=== PATIENT | female | born 1975 | race Caucasian/White ===

== ENCOUNTER 2020-09-28 05:06 | Observation (INO) ==
[2020-09-28] MEDS ORDERED: ONDANSETRON 4 MG/2 ML VIAL IV STA (05:31)
[2020-09-28] MEDS ORDERED: NITROGLYCERIN 2% OINT 1 INCH/GM PACK TOP STA (05:31)
[2020-09-28] MEDS ORDERED: ASPIRIN 325 MG TABLET PO STA (05:31)
[2020-09-28] MEDS ORDERED: MORPHINE 4 MG/1 ML VIAL IV STA (05:31)
[2020-09-28] MEDS ORDERED: ALUM/MAG/SIMETH/LIDO VISC 1:1 30 ML BOTTLE PO STA (05:31)
[2020-09-28 05:48] LABS: Basophils # 0.1 10*3/uL (0.0-0.2); Basophils % 0.6 % (0.0-0.8); Eosinophils # 0.5 10*3/uL (0.0-0.87); Eosinophils % 4.2 % (0.00-10.9); Hematocrit 42.1 VOL% (35.7-47.0); Hemoglobin 14.5 GM/DL (12.0-16.0); Immature Granulocytes % 0.4 %; Immature Granulocytes Absolute 0.04 #; Lymphocytes % 35.7 % (21.3-54.2); Mean Corpuscular HGB Conc 34.4 GM/DL (32-36); Mean Corpuscular Volume 91.7 FL (87-102); Mean Platelet Volume 9.1 FL (9.6-12.0); Neutrophils % 51.1 % (38.7-73.9); Platelet Count 276 T/CUMM (130-400); Red Blood Count 4.59 MC/CUMM (3.8-5.5); White Blood Count 11.1 T/CUMM (4-12)
[2020-09-28 05:58] LABS: PT Patient Result 10.5 SECS (9.8-11.9)
[2020-09-28 06:18] LABS: Eosinophils 5 % (0-10); Lymphocytes 37 % (20-55); Platelet Estimate Adequate; Segmented Neutrophils 50 % (50-85); Total Cells Counted 100
[2020-09-28 06:19] LABS: Atypical Lymphocytes Few
[2020-09-28 06:44] LABS: Albumin 3.8 G/DL (3.4-5.0); Bilirubin,Total 0.5 MG/DL (0.2-1.0); Calcium 9.1 MG/DL (8.5-10.1); Osmolality,Calculated 273.7 MOS/KG (273-304); Total Protein 7.2 G/DL (6.4-8.3)
[2020-09-28] MEDS ORDERED: cefTRIAXone 1,000 MG in SYRINGE 1 EACH IV SCH (09:30)
[2020-09-28] MEDS ORDERED: ALBUTEROL 2.5 MG/3 ML NEB RESP TX PRN ×2 (09:31→09:48)
[2020-09-28] MEDS ORDERED: busPIRone 5 MG TABLET PO ONE (09:41)
[2020-09-28] MEDS ORDERED: AZITHROMYCIN INJ 500 MG in SODIUM CHLORIDE 0.9% 250 ML IV SCH (10:00)
[2020-09-28 10:22] LABS: Risk Ratio 4.97; VLDL CHOLESTEROL 34.4 MG/DL
[2020-09-28 10:27] VITALS: BP 157/84
[2020-09-28 10:33] LABS: Free T4 (Free Thyroxine) 1.22 NG/DL (0.76-1.46)
[2020-09-28] MEDS ORDERED: ALBUTEROL 2.5 MG/3 ML NEB RESP TX SCH (11:00)
[2020-09-28] MEDS ORDERED: ALBUTEROL/IPRATROPIUM 3 ML NEB RESP TX SCH (13:00)
[2020-09-28] MEDS ORDERED: ASPIRIN EC 325 MG TABLET PO SCH (21:00)
[2020-09-28] MEDS ORDERED: busPIRone 5 MG TABLET PO SCH (21:00)
[2020-09-28] MEDS ORDERED: SIMVASTATIN 20 MG TABLET PO SCH (21:00)
== END 2020-09-28 10:22 | disposition left against medical advice (07) ==
LOC: N.EDINP 05:06 → N.ED 05:06 → N.EDINP 10:21
PROVIDERS: ADMIT Internal Medicine; ATTEND Internal Medicine